=== PATIENT | female | born 1945 | race Caucasian/White ===

== ENCOUNTER 2023-06-30 13:53 | Emergency (ER) | payer MEDICARE ==
[~2023-06-30] VITALS: Ht 152.4 cm; Wt 65.8 kg
[~2023-06-30 13:53] MED LIST: AMLO2.5T PO; ASP81CT PO; ASPI-9 PO; CITA20TA4 PO; CYCL10TA9 PO; FURO20TA4 PO; HYDR1TAB PO; IBP600T1 PO; NEFA150T PO; NF-ESOM40C PO; NFPROP80LA; NTR.4SL SL; PRIM50TA26 PO; PROP20TA5 PO; PROPANOLOL; PROPANOLOL PO; PROPR; SIMV40TA4 PO
[2023-06-30 14:00] VITALS: BP 123/80
--- NOTE | 2023-06-30 14:26 | ED Neck-Back Pain/Injury ---
General Chief Complaint: Head/Cervical Problems Stated Complaint: NECK PAIN | NON-ACCIDENT Nursing Triage Note: PATIENT C/O Rt. SIDE NECK PAIN THAT STARTED 6 DAYS AGO. PATIENT DENIES ANY NEW INJURY OR RECENT FALLS. PATIENT STATES SHE HAS CHRONIC NECK PAIN AND STATES SHE TOOK TRAMADOL THIS AM. PATIENT STATES SHE TOOK A ZANAFLEX LAST NIGHT, BUT DENIES TAKING ANY TODAY. Source of Information: Patient Exam Limitations: No Limitations (CESILIA RAMIRES APRN) History of Present Illness Date Seen by Provider: Jun 30, 2023 Time Seen by Provider: 14:09 Initial Comments 77-year-old female presents to the ER with complaint of neck pain. States that she has had chronic neck pain for a long time, but states the pain became worse over the last 6 days. Complains of pain on the right side of her neck, denies pain with palpation of the C-spine. She states that she has had an MRI in the past which showed degenerative disc disease and arthritis. She states the pain feels the same just a lot worse. She reports some dizziness due to the pain. Also reports some nausea, denies vomiting. She denies fevers. She has no nuchal rigidity. She last took tramadol this morning. She also has a muscle relaxer at home, has not taken that today. (CESILIA RAMIRES APRN) Allergies and Home Medications Allergies Coded Allergies: No Known Drug Allergies (Verified , 06/24/08) Patient Home Medication List Home Medication List Reviewed: Yes (CESILIA RAMIRES APRN) Amlodipine Besylate (Amlodipine Besylate) 2.5 Mg Tablet, 2.5 MG PO DAILY, (Reported) Entered as Reported by: ASH MANZANO on 04/27/10 1735 Citalopram Hydrobromide (Citalopram Hbr) 20 Mg Tablet, 20 MG PO DAILY, (Reported) Entered as Reported by: KONRAD MARTIN on 02/21/12 1014 Cyclobenzaprine Hcl (Cyclobenzaprine Hcl) 10 Mg Tablet, 10 MG PO TID PRN, (Reported) Entered as Reported by: HILL JOHNS on 09/06/09 040 Esomeprazole Mag Trihydrate (Nexium) 40 Mg Capsule.dr, 40 MG PO DAILY, (Reported) Entered as Reported by: HILL JOHNS on 2/14/10 0403 Furosemide (Furosemide) 20 Mg Tablet, 20 MG PO DAILY, (Reported) Entered as Reported by: KONRAD MARTIN on 02/21/12 1013 Ibuprofen (Motrin) 600 Mg Tablet, 600 MG PO QID PRN, (Reported) Entered as Reported by: RUIZ CHAPA on 12/26/09 1034 Lidocaine (Lidocaine) 4 % Adh..patch, 1 EACH TP DAILY Prescribed by: Cesilia Caputo on 06/30/23 1540 Lovastatin (Mevacor) 20 Mg Tablet, 20 MG PO DAILY, (Reported) Entered as Reported by: KONRAD MARTIN on 02/21/12 1008 Nitroglycerin (Nitrostat) 0.4 Mg Subl, 0.4 MG SL PRN, (Reported) Entered as Reported by: COREY SANTOS on 02/21/12 1806 Primidone (Primidone) 50 Mg Tablet, 25 MG PO DAILY, (Reported) Entered as Reported by: KONRAD MARTIN on 02/21/12 1010 Propranolol Hcl (Propranolol Hcl) 20 Mg Tablet, 20 MG PO DAILY, (Reported) Entered as Reported by: COREY SANTOS on 02/21/12 1758 Review of Systems Constitutional: see HPI (CESILIA RAMIRES APRN) Past Ucpectk-Oljczj-Felukg Hx Patient Social History Tobacco Use?: No Use of E-Cig and/or Vaping dev: No Substance use?: No Alcohol Use?: No Pt feels they are or have been: No (CESILIA RAMIRES APRN) Immunizations Up To Date Influenza Vaccine Up-to-Date: No; Not Current (CESILIA RAMIRES APRN) Past Medical History Reproductive Disorders: No (CESILIA RAMIRES APRN) Physical Exam Vital Signs Vital Signs - First Documented 06/30/23 14:00 Temp 37.0 Pulse 75 Resp 14 B/P (MAP) 123/80 (94) O2 Delivery Room Air (HARSHAD AUGUSTINE MD) Vital Signs Capillary Refill : (CESILIA RAMIRES APRN) Height, Weight, BMI Height: '" Weight: lbs. oz. kg; 28.00 BMI Method:Stated General Appearance: WD/WN, Mild Distress Neck: Normal Inspection, Limited Range of Motion (Unable to turn neck to right, this is chronic, no change going to patient), Tender Lateral (Right side); No Tender Midline Cardiovascular: Regular Rate, Rhythm Respiratory: Lungs Clear, Normal Breath Sounds, No Accessory Muscle Use, No Respiratory Distress Extremity: Normal Inspection, Normal Range of Motion Neurologic/Psychiatric: Alert, No Motor/Sensory Deficits, Normal Mood/Affect Skin: Normal Color, Warm/Dry (CESILIA RAMIRES APRN) Progress/Results/Core Measures Results/Orders Medications Given in ED Current Medications Medications Dose Ordered Sig/Gricelda Route Start Time Stop Time Status Last Admin Dose Admin Ketorolac Tromethamine 15 mg ONCE ONCE IM 06/30/23 14:30 06/30/23 14:31 DC 06/30/23 14:29 15 MG Lidocaine 1 ea ONCE ONCE TOP 06/30/23 14:30 06/30/23 14:31 DC 06/30/23 14:28 1 EA Orphenadrine Citrate 60 mg ONCE ONCE IM 06/30/23 14:30 06/30/23 14:31 DC 06/30/23 14:28 60 MG (HARSHAD AUGUSTINE MD) Vital Signs/I&O 06/30/23 14:00 Temp 37.0 Pulse 75 Resp 14 B/P (MAP) 123/80 (94) O2 Delivery Room Air (HARSHAD AUGUSTINE MD) Blood Pressure Mean: 94 Progress Progress Note : Progress Note Patient seen and evaluated, resting in recliner, mild distress. Based on exam and symptoms, this is likely musculoskeletal pain. Patient has no meningeal signs, no nuchal rigidity or fever. Will treat with medications including Toradol, Norflex, and lidocaine patch. 1536 patient reevaluated, reports improvement in pain. Will discharge with prescription for lidocaine patches. Patient has tramadol and muscle relaxer at home. Discharge instructions and return precautions provided. (CESILIA RAMIRES APRN) Departure Impression Primary Impression: Neck pain Disposition: 01 HOME, SELF-CARE Condition: Stable Departure-Patient Inst. Decision time for Depature: 15:37 (CESILIA RAMIRES APRN) Referrals: SHUBHAM GOMEZ DO (PCP/Family) Primary Care Physician Patient Instructions: Chronic Neck Pain (DC) Add. Discharge Instructions: Follow-up with your primary care provider. Continue taking your tramadol and muscle relaxer at home. You may add Tylenol as needed for pain. Use the lidocaine patches. Wear 1 patch for 12 hours, remove for 12 hours, prior to placing the next patch. Return for any new, concerning, or worsening symptoms. All discharge instructions reviewed with patient and/or family. Voiced understanding. Scripts Lidocaine (Lidocaine) 4 % Adh..patch 1 EACH TP DAILY, #7 PATCH 0 Refills Wear 1 patch for 12 hours, go patch free for 12 hours prior to placing the next patch. Prov: CESILIA RAMIRES APRN 06/30/23 ATTENDING PHYSICIAN NOTE: I was physically present as attending physician in the emergency department during the care of this patient, but I was not directly involved in the decision making or delivery of care for this patient. (HARSHAD AUGUSTINE MD) CESILIA RAMIRES APRN Jun 30, 2023 14:26 HARSHAD AUGUSTINE MD Jun 30, 2023 19:35
[2023-06-30] MEDS ORDERED: ORPHENADRINE 60 MG/2 ML AMP (ED ONLY) IM ONE (14:30)
[2023-06-30] MEDS ORDERED: LIDOCAINE 4% PATCH TOP ONE (14:30)
[2023-06-30] MEDS ORDERED: KETOROLAC INJ 15 MG/ML VIAL IM ONE (14:30)
[2023-06-30] MEDS ORDERED: LIDO1ADH78 TP (15:40)
[2023-07-01] MEDS ORDERED: LIDOCAINE 4% PATCH TOP SCH (09:00)
== END 2023-06-30 15:51 | disposition home or self-care (01) ==
LOC: EDUNIT# 13:53 → ER 13:56
DX: M54.2 Cervicalgia (principal); Z87.39 Personal history of other diseases of the musculoskeletal system and connective tissue
CPT/HCPCS: 99284